=== PATIENT | female | born 1940 | race Caucasian/White ===

== ENCOUNTER 2019-03-22 09:48 | Emergency (ER) | payer MEDICARE, OTHER ==
[~2019-03-22] VITALS: Ht 165.1 cm; Wt 90.0 kg
[2019-03-22 10:49] LABS: BASOPHILS % (AUTO) 0.9 % (0-1); EOSINOPHILS # (AUTO) 0.1 X10'3 (0-0.9); HEMOGLOBIN 14.2 g/dl (12.0-16.0); LYMPHOCYTES # (AUTO) 1.2 X10'3 (1.1-4.8); MONOCYTES # (AUTO) 0.4 X10'3 (0-0.9); NEUTROPHILS # (AUTO) 3.5 X10'3 (1.8-7.7); RED BLOOD COUNT 4.44 X10'6 (4.20-5.60); WHITE BLOOD COUNT 5.2 X10'3 (4.5-11.0)
[2019-03-22 10:50] LABS: EOSINOPHILS % (AUTO) 1.7 % (0-6); HEMATOCRIT 41.5 % (35.0-45.0); LYMPHOCYTES % (AUTO) 23.2 % (21-51); MEAN CORPUSCULAR HEMOGLOBIN 31.9 PG (27.0-31.0); MEAN CORPUSCULAR HGB CONC 34.2 g/dL (33.0-36.5); MEAN CORPUSCULAR VOLUME 93.4 FL (78-98); MEAN PLATELET VOLUME 10.7 FL (7.4-10.4); MONOCYTES % (AUTO) 7.6 % (2-12); NEUTROPHILS % (AUTO) 66.6 % (42-75); PLATELET COUNT 134 X10'3 (140-440); RED CELL DISTRIBUTION WIDTH 13.3 % (11.5-14.5)
[2019-03-22 10:59] LABS: PARTIAL THROMBOPLASTIN TIME 30 SECONDS (22-32)
[2019-03-22 11:00] LABS: ALANINE AMINOTRANSFERASE 31 U/L (12-78); ALBUMIN 3.6 G/DL (3.4-5.0); ALBUMIN/GLOBULIN RATIO 1.1 (1.1-1.5); ALKALINE PHOSPHATASE 56 IU/L (46-116); ANION GAP 6 (8-16); ASPARTATE AMINO TRANSFERASE 13 U/L (10-37); BILIRUBIN,TOTAL 0.6 MG/DL (0.1-1.0); BLOOD UREA NITROGEN 18 MG/DL (7-18); BUN/CREATININE RATIO 25.7 (6.6-38.0); CALCIUM 9.7 MG/DL (8.5-10.1); CHLORIDE 108 MMOL/L (99-107); GLUCOSE 91 MG/DL (70-104); POTASSIUM 4.3 MMOL/L (3.5-5.1); SODIUM 143 MMOL/L (135-145); TOTAL CARBON DIOXIDE 29.1 MMOL/L (24-32); TOTAL PROTEIN 6.8 G/DL (6.4-8.2); eGFR 81 ML/MIN
[2019-03-22 11:01] LABS: LARGE PLATELETS FEW; PLATELET ESTIMATE DECREASED
--- NOTE | 2019-03-22 11:13 | NUR ---
TELE NEURO INITIATED
[2019-03-22] MEDS ORDERED: aspirin 325mg tablet PO ONE (11:45)
[2019-03-22] MEDS ORDERED: meclizine 12.5mg tablet PO ONE (11:45)
[2019-03-22] MEDS ORDERED: diazepam 5mg tablet PO ONE (13:40)
--- NOTE | 2019-03-22 14:04 | NUR ---
mri checklist completed, at bedside
--- NOTE | 2019-03-22 15:31 | NUR ---
back from mri
--- NOTE | 2019-03-22 15:36 | NUR ---
BACK IN ROOM FROM MRI CALLED TELE [phone]
--- NOTE | 2019-03-22 15:38 | NUR ---
PER DR CORRALES: NO NEURO TELE CONSULT NEEDED UNLESS MRI SHOWS AN ABNORMALITY
[2019-03-22] MEDS ORDERED: MECL-111 PO (16:51)
[2019-03-22 17:16] VITALS: BP 146/67
== END 2019-03-22 17:17 | disposition home or self-care (01) ==
LOC: ER 09:49
DX: H81.10 Benign paroxysmal vertigo, unspecified ear (principal); I25.10 Atherosclerotic heart disease of native coronary artery without angina pectoris; E78.00 Pure hypercholesterolemia, unspecified; E07.9 Disorder of thyroid, unspecified; C34.90 Malignant neoplasm of unspecified part of unspecified bronchus or lung; Z98.61 Coronary angioplasty status; Z88.0 Allergy status to penicillin; Z79.899 Other long term (current) drug therapy
CPT/HCPCS: 36415; 70450; 70551; 71045; 80053; 82948; 84484; 85025; 85610; 85730; 93005; 99284; J8597